=== PATIENT | male | born 1955 | race African-American/Black ===

== ENCOUNTER 2019-08-12 04:26 | Emergency (ER) | payer BC, OTHER ==
[2019-08-12 04:50] VITALS: BP 175/91
--- NOTE | 2019-08-12 08:17 | ER Document Report ---
ED General - General Chief Complaint: Ear Pain Stated Complaint: RIGHT EAR PLUGGED Time Seen by Provider: 08/12/19 07:48 TRAVEL OUTSIDE OF THE [place] IN LAST 30 DAYS: No - HPI Notes: Mr. Pitt is a 64-year-old male with a chief complaint of sensation of right ear being plugged. Onset this morning. Duration persistent. Quality pressure. Location right ear. Radiation none. Relieving factors: Worse after he tried to remove the wax with a Q-tip. Severity moderate. Pertinent prior history: Long-term treatment for hypertension and hyperlipidemia. - Related Data Allergies/Adverse Reactions: No Known Allergies Allergy (Unverified 08/12/19 04:52) Home Medications: HTN MEDS. CHOLESTEROL Past Medical History - General Information source: Patient - Social History Smoking Status: Never Smoker Family History: Reviewed & Not Pertinent Patient has suicidal ideation: No Patient has homicidal ideation: No - Past Medical History Cardiac Medical History: Reports: Hx Hypercholesterolemia, Hx Hypertension Psychiatric Medical History: Reports: Hx Depression Review of Systems - Review of Systems Notes: Constitutional: Negative for fever. HENT: Negative for sore throat. Eyes: Negative for visual changes. Cardiovascular: Negative for chest pain. Respiratory: Negative for shortness of breath. Gastrointestinal: Negative for abdominal pain, vomiting or diarrhea. Genitourinary: Negative for dysuria. Musculoskeletal: Negative for back pain. Skin: Negative for rash. Neurological: Negative for headaches, weakness or numbness. 10 point ROS negative except as marked above and in HPI. Physical Exam - Vital signs Vitals: Temp Pulse Resp BP Pulse Ox 97.7 F 74 20 175/91 H 96 08/12/19 04:39 08/12/19 04:39 08/12/19 04:39 08/12/19 04:39 08/12/19 04:39 - Notes Notes: GENERAL: Somewhat obese male approximately stated age appearing in no acute distress. SKIN: Good turgor no rashes. HEAD: Normocephalic atraumatic. EYES: PERRLA. EOMI. Conjunctivae and sclerae clear. EARS: BOTH CANALS ARE OCCLUDED WITH WAX INITIALLY. FOLLOWING DISIMPACTION CANALS AND TMS ARE CLEAR. NECK: Supple. No masses or thyromegaly. No adenopathy. Carotids 2+ without bruits. No JVD. BACK: Symmetrical without tenderness. CHEST: Respirations unlabored. Breath sounds clear and symmetrical. HEART: Regular rhythm. No murmur gallop or rub. ABDOMEN: Soft nontender without masses, organomegaly or rebound. Bowel sounds normally active. No bruits. EXTREMITIES: No edema. No calf tenderness. Cap refill less than 1.5 seconds. Dorsalis pedis and posterior tibial pulses 3+ and symmetrical. NEUROLOGICAL: Alert and oriented x3. Nonfocal. PSYCHIATRIC: Appropriate affect. Course - Re-evaluation Re-evalutation: 08/12/19 08:16 Bilateral ear lavage by nursing staff. - Vital Signs Vital signs: Temp Pulse Resp BP Pulse Ox 97.7 F 74 20 175/91 H 96 08/12/19 04:39 08/12/19 04:39 08/12/19 04:39 08/12/19 04:39 08/12/19 04:39 Discharge - Discharge Clinical Impression: Bilateral impacted cerumen Condition: Stable Disposition: HOME, SELF-CARE Additional Instructions: Cerumen Impaction The physician found a severe buildup of earwax in your ear canal, called a cerumen impaction. A large plug of wax can cause earache, decreased hearing, or itching. It can even lead to infection of the outer ear. An impaction of earwax can be removed by the physician using special instruments, or can be irrigated out using a stream of water (often a little of both is required). Some less severe impactions are removed using ear drops that dissolve wax. In the future, don't get soap in your ear canal. Soap doesn't remove wax -- it simply hardens it in place. Don't use cotton swabs. These just push the wax into large clumps, where it doesn't flow out normally. Dust and smoke also contribute to wax buildup. Earwax softening drops are available without prescription, and can be used periodically. Contact the doctor if you develop decreased hearing, earache, drainage from the ear, or severe headache. Return here as needed for new or worsening symptoms: Pain that is worsening or unimproved Uncontrolled vomiting High fever or shaking chills Overall worsening
== END 2019-08-12 09:17 | disposition home or self-care (01) ==
LOC: ER 04:26
DX: H61.23 Impacted cerumen, bilateral (principal); H92.01 Otalgia, right ear; E66.9 Obesity, unspecified; E78.00 Pure hypercholesterolemia, unspecified; I10 Essential (primary) hypertension
CPT/HCPCS: 99282

== ENCOUNTER → 2020-08-20 | Outpatient (CLI) | payer OTHER ==
[~2020-08-20] MED LIST: COVID-19 VACCINE (PFIZER)/PF 30 MCG/0.3 ML VIAL IM ONE; EPINEPHRINE INJ/PF 1 MG/1 ML AMPULE IM PRN
--- OUTSIDE RECORDS SUMMARY | 2020-08-23 10:26 | XMS REPORT ---
:1955 [facility] [address] [place] [address] Care Team Providers Name Role Phone Lukasz Mitchell Primary Care Physician Unavailable Nba Boss MD Attending Clinician Unavailable Chaya DUMONT Attending Clinician Unavailable Asiya Attending Clinician Unavailable Chaya Attending Clinician Unavailable Allergies, Adverse Reactions, Alerts This patient has no known allergies or adverse reactions. Medications Ordered Filled Start Stop Current Ordering Indication Dosage Frequency Signature Comments Components Medication Medication Date Date Medication? Clinician (SIG) Name Name hydroCHLORO 2019-07 Yes Nba Perez thiazide 2- Dharmesh Othiazide 12.5 MG 13:53: Gera DUMONT 12.5 MG Oral 18 Oral Capsule Capsule TAKE ONE CAPSULE BY MOUTH EVERY DAY Quantity: 30 Refills: 5 Nba Boss MD Start : 0Active Citalopram 2019-07 Yes Nba Citalopram Hydrobromid 2- Dharmesh Hydrobromi e 20 MG 13:53: Gera DUMONT de 20 MG Oral Tablet 01 Oral Tablet TAKE ONE TABLET BY MOUTH DAILY AT BEDTIME Quantity: 30 Refills: 5 Nba Boss MD Start : 0Active Meloxicam 2019-07 Yes Cedar QD Meloxicam 7.5 MG Oral -09 Montiel 7.5 MG Tablet 00:00: N.P. Oral 00 Tablet TAKE 1 TABLET DAILY WITH FOOD. Quantity: 14 Refills: 0 Montiel N.P.Belem Start : 06-Jun-2020 Active Valsartan-h 2019- Yes Nba Valsartan- ydroCHLOROt 0- Dharmesh hydroCHLOR hiazide 12:04: Gera DUMONT Othiazide 320-25 MG 27 320-25 MG Oral Tablet Oral Tablet TAKE ONE TABLET BY MOUTH ONCE DAILY Quantity: 30 Refills: 6 Nba Boss MD Start : 0Active Simvastatin 2020-1 Yes Nba Simvastati 80 MG Oral 0-19 Dharmesh n 80 MG Tablet 12:04: Gera DUMONT Oral 22 Tablet TAKE ONE TABLET BY MOUTH EVERY NIGHT AT BEDTIME Quantity: 30 Refills: 5 Nba Boss MD Start : 0Active Doxazosin 2020-0 Yes Nba Doxazosin Mesylate 4 8-14 Dharmesh Mesylate 4 MG Oral 09:18: Gera DUMONT MG Oral Tablet 26 Tablet TAKE ONE TABLET BY MOUTH EVERY DAY Quantity: 30 Refills: 5 Nba Boss MD Start : 0Active Tadalafil 2020-0 Yes Nba Tadalafil 20 MG Oral 7-28 Dharmesh 20 MG Oral Tablet 00:00: Gera DUMONT Tablet 00 TAKE ONE TABLET BY MOUTH DAILY Quantity: 30 Refills: 6 Nba Boss MD Start : 0Active Citalopram 2020-0 No Nba Citalopram Hydrobromid 7-13 Dharmesh Hydrobromi e 20 MG 11:04: Gera DUMONT de 20 MG Oral Tablet 08 Oral Tablet TAKE ONE TABLET BY MOUTH DAILY AT BEDTIME Quantity: 30 Refills: 5 Nba Boss MD Start : 0Active hydroCHLORO 2020-0 No Nba hydroCHLOR thiazide 7-13 Dharmesh Othiazide 12.5 MG 11:03: Gera DUMONT 12.5 MG Oral 53 Oral Capsule Capsule TAKE ONE CAPSULE BY MOUTH EVERY DAY Quantity: 30 Refills: 5 Nba Boss MD Start : 0Active Potassium 2020-0 Yes Nba Potassium Chloride 6-16 Dharmesh Chloride My ER 20 09:48: Gera DUMONT My ER 20 MEQ Oral 44 MEQ Oral Tablet Tablet Extended Extended Release Release TAKE ONE TABLET BY MOUTH EVERY DAY Quantity: 90 Refills: 3 Nba Boss MD Start : 0Active Simvastatin 2020-0 No Nba Simvastati 80 MG Oral 4-08 Dharmesh n 80 MG Tablet 09:09: Gera DUMONT Oral 38 Tablet TAKE ONE TABLET BY MOUTH AT BEDTIME Quantity: 30 Refills: 5 Nba Boss MD Start : 04-Nov-2019 Active Valsartan-h 2020-0 No Nba Valsartan- ydroCHLOROt 3-10 Dharmesh hydroCHLOR hiazide 16:50: Gera DUMONT Othiazide 320-25 MG 37 320-25 MG Oral Tablet Oral Tablet TAKE ONE TABLET BY MOUTH ONCE DAILY *replaces losartan* Quantity: 30 Refills: 6 Nba Boss MD Start : 0Active Doxazosin No Nba Doxazosin Mesylate 4 2-07 Dharmesh Mesylate 4 MG Oral 10:12: Gera DUMONT MG Oral Tablet 53 Tablet TAKE ONE TABLET BY MOUTH EVERY DAY Quantity: 30 Refills: 5 Nba Boss MD Start : 04-Sep-2019 Active Rhinocort 2019- Yes Nba QD Rhinocort Allergy 32 1- Dahrmesh Allergy 32 MCG/ACT 00:00: Gera DUMONT MCG/ACT Nasal 00 Nasal Suspension Suspension USE 2 SPRAYS IN EACH NOSTRIL ONCE DAILY Quantity: 1 Refills: 5 Nba Boss MD Start : 0Active 8.43 ML Bottle Testosteron No Nba Testostero e Cypionate 03-28 Dharmesh ne 200 MG/ML 00:00: Gera DUMONT Cypionate Intramuscul 00 200 MG/ML ar Solution Intramuscu lar Solution Inject 300 MG IM Once Monthly, Refills: 0 Nba Boss MD Start : 9Admin Requested Meloxicam Yes Soraya QD Meloxicam 7.5 MG Oral 3-12 Cidra 7.5 MG Tablet 00:00: VILMA Oral 00 Tablet TAKE 1 TABLET DAILY WITH FOOD. Quantity: 30 Refills: 0 Soraya Padron Start : 8Active LORazepam 1 Yes Nba QD LORazepam MG Oral Dharmesh 1 MG Oral Tablet Gera DUMONT Tablet TAKE 1 TABLET DAILY DIRECTED. Quantity: 30 Refills: 2 Nba Boss MD Active Problems Condition Condition Condition Status Onset Resolution Last Treatin g Comments Name Details Category Date Date Treatment Clinician Date Organic Organic Problem Active impotence impotence Injury of Injury of Problem Active left thumb left thumb Organic Organic Problem Inactiv impotence impotence e Pes planus Pes planus Problem Active of both of both feet feet Closed Closed Problem Active displaced displaced fracture of fracture of third third metatarsal metatarsal bone of bone of right foot right foot with with nonunion nonunion Plantar Plantar Problem Active fasciitis fasciitis of right of right foot foot Closed Closed Problem Active displaced displaced fracture of fracture of second second metatarsal metatarsal bone of bone of right foot right foot with with delayed delayed healing healing Foot pain, Foot pain, Problem Active right right Encounter Encounter Problem Active for for screening screening for for malignant malignant neoplasm of neoplasm of prostate prostate Arthralgia Arthralgia Problem Active of shoulder of shoulder Sciatica Sciatica Problem Active Arthralgia Arthralgia Problem Active of multiple of multiple sites sites Cerumen Cerumen Problem Active impaction impaction Fatigue Fatigue Problem Active Hyperlipemi Hyperlipemi Problem Active a a Benign Benign Problem Active hypertensiv hypertensiv e heart e heart disease disease Hypogonadis Hypogonadis Problem Active m male m male Procedures Procedure Date / Time Performed Performing Clinician Devic e Basic Metabolic Panel(BMP) 2020-02-23 00:00:00 Hepatic Panel 2020-02-23 00:00:00 Lipid Panel 2020-02-23 00:00:00 Testosterone 2020-02-23 00:00:00 CBC 2020-02-23 00:00:00 SHOULDER ARTHROSCOPY/SURGERY 2018-04-08 10:25:00 Preop H\T\P 2018-04-03 13:30:00 OFFICE/OUTPATIENT VISIT, EST 2018-02-14 15:05:00 Procedures not documented Results Test Description Test Time Test Comments Text Results Atomic Results Result Comments XR-Hand(3 Views) 2020-06-06 08:59:00 An image is avaliable in [employer], click link to view image CBC 2020-02-23 16:26:00 Test Item Value Reference Range Comments White Blood Cell (test code = White Blood Cell) 5.3 K/uL 3.5-11.1 Red Blood Cell (test code = Red Blood Cell) 5.16 {M/uL} 4.27 -5.49 Hemoglobin (test code = Hemoglobin) 14.2 g/dL 12.9-16.1 Hematocrit (test code = Hematocrit) 44 % 38-47 Mean Corpuscular Volume (test code = Mean Corpuscular Volume) 85 .7 fL 79.0-95.0 Mean Corpuscular Hemoglobin (test code = Mean Corpuscular 27.5 p g/mL 27.0-33.0 Hemoglobin) Mean Corpuscular Hemoglobin Concentration (test code = Mean 32.1 g/dL 33.5-35.5 Corpuscular Hemoglobin Concentration) Red Cell Distribution Width (test code = Red Cell 16.3 % 12.0-15.0 Distribution Width) Platelet (test code = Platelet) 237 K/uL 130-353 Mean Platelet Volume (test code = Mean Platelet Volume) 9.9 fL 7.5-10.7 Neutrophil Count, absolute (test code = Neutrophil Count, 2.7 K/ uL 1.9-7.2 absolute) Neutrophil Count Percentage (test code = Neutrophil Count 50.5 % 43.0-72.0 Percentage) Lymphocyte Count, absolute (test code = Lymphocyte Count, 1.9 K/ uL 1.1-2.7 absolute) Lymphocyte Count Percentage (test code = Lymphocyte Count 35.3 % 17.0-44.0 Percentage) Monocyte Count, absolute (test code = Monocyte Count, 0.7 K/uL 0.3-0.8 absolute) Monocyte Count Percentage (test code = Monocyte Count 12.7 % 4.5-12.4 Percentage) Eosinophil Count, absolute (test code = Eosinophil Count, 0.1 K/ uL 0.0-0.5 absolute) Eosinophil Count Percentage (test code = Eosinophil Count 0.9 % 0.7-7.8 Percentage) Basophil Count, absolute (test code = Basophil Count, 0.0 K/uL 0.0-0.1 absolute) Basophil Count Percentage (test code = Basophil Count 0.4 % 0.2-1.1 Percentage) Nucleated Red Blood Cell, absolute (test code = Nucleated Re d 0.00 K/uL 0.00-0.00 Blood Cell, absolute) Nucleated Red Blood Cell, percentage (test code = Nucleated 0.00 % 0.00-0.00 Red Blood Cell, percentage) Basic Metabolic Panel(BMP)2020-02-23 16:26:00 Test Item Value Reference Range Comments Glucose (test code = Glucose) 91 mg/dL 74-106 Sodium (test code = Sodium) 139 mmol/L 135-145 Potassium (test code = Potassium) 4.4 mmol/L 3.5-5.3 Chloride (test code = Chloride) 100 mmol/L 98-107 CO2 (test code = CO2) 35 mmol/L 22-30 Creatinine, serum (test code = Creatinine, serum) 1.20 mg/dL 0.10-1.25 Glomerular Filtration Rate (test code = >60 >60 Glomerular Filtration Rate) Glomerular Filtration Rate AA (test code = >60 >60 Glomerular Filtration Rate AA) Blood Urea Nitrogen (test code = Blood Urea 15 mg/dL 9-20 Nitrogen) Calcium (test code = Calcium) 9.3 mg/dL 8.4-10.5 Hepatic [id number] 16:26:00 Test Item Value Reference Range Comments Total Protein (test code = Total Protein) 7.4 g/dL 6.3-8. 2 Albumin (test code = 47256-9) 4.1 g/dL 3.5-5.0 Total Bilirubin (test code = Total Bilirubin) 0.3 mg/dL 0. 2-1.3 Bilirubin, Direct (test code = Bilirubin, Direct) 0.1 mg/dL 0.0-0.4 Bilirubin, unconj (test code = Bilirubin, unconj) 0.2 mg/dL 0.0-1.1 Alkaline Phosphatase (test code = Alkaline 95 U/L 20-15 0 Phosphatase) Alanine Transaminase (test code = Alanine 30 U/L 0-50 Transaminase) Aspartate Aminotransferase (test code = Aspartate 35 U/L 3-36 Aminotransferase) Lipid [id number] 16:26:00 Test Item Value Reference Range Comments Chol/HDL Ratio (test code = 2089-1) 3.1 {ratio} 0.0-6.0 High Density Lipoprotein Cholesterol (test code 51 mg/dL 40-110 = High Density Lipoprotein Cholesterol) Low Density Lipoprotein, calculated (test code = 81 mg/dL 1-130 Low Density Lipoprotein, calculated) [id number] 16:26:00 Test Item Value Reference Range Comments Testosterone (test code = Testosterone) 346.00 ng/dL 71.80-62 3.00 Assessments Condition Name Status Diagnosis Date Treating Clinici an Injury of left thumb Active Encounter for preventive health examination Active Benign hypertensive heart disease Active Hypogonadism male Active Benign hypertensive heart disease Active Encounter for preventive health examination Active Fatigue Active Hypogonadism male Active Hyperlipemia Active Cerumen impaction Active Benign hypertensive heart disease Active Hypogonadism male Active Hypogonadism male Active Hyperlipemia Active Hypogonadism male Active Benign hypertensive heart disease Active Calcific tendinitis of right shoulder Active Primary osteoarthritis, right shoulder Active Unsp rotatr-cuff tear/ruptr of right Active shoulder, not trauma Chondromalacia, right shoulder Active Primary osteoarthritis, right shoulder Active Calcific tendinitis of right shoulder Active Loose body in right shoulder Active Pain in right shoulder Active Pain in right shoulder Active Primary osteoarthritis, right shoulder Active Calcific tendinitis of right shoulder Active Loose body in right shoulder Active Encounters Start End Encounter Admission Attending Care Care Encounter Date/Time Date/Time Type Type Clinicians Facility Department ID 2020-08-16 2020-08-16 Appointment [facility] [id number] 15:00:00 15:30:27 ; RAI shore, Clinical WB 2020-07-15 2020-07-15 Appointment [facility] [id number] 13:25:00 13:25:00 ; RAI shore, Clinical WB 2020-07-15 2020-07-15 Appointment [facility] [id number] 13:15:00 13:15:00 ; RAI shore, Clinical WB 2020-06-17 2020-06-17 Appointment [facility] [id number] 14:25:00 14:25:00 ; RAI shore, Clinical WB 2020-06-06 2020-06-06 Appointment [facility] [id number] 08:45:00 08:45:00 ; Ayanna Oliva 2020-06-06 2020-06-06 Appointment [facility] [id number] 08:30:00 08:30:00 ; Belem Montiel NP 2020-05-10 2020-05-10 Appointment [facility] [id number] 16:30:00 16:30:00 ; RAI shore, Clinical WB 2020-04-07 2020-04-07 Appointment [facility] [id number] 16:30:00 16:30:00 ; RAI Nanovalentino mone, Clinical WB 2020-03-04 2020-03-04 Appointment [facility] [id number] 16:35:00 16:35:00 ; RAI Nanovalentino shore, Clinical WB 2020-02-23 2020-02-23 Appointment Nba Boss [facility] [id number] 16:00:00 16:00:00 ; Dharmesh Boss MD 2020-02-03 2020-02-03 Appointment [facility] [id number] 16:35:00 16:35:00 ; RAI Enriquezninavalentino shore, Clinical WB 2019-12-30 2019-12-30 Appointment [facility] [id number] 16:30:00 16:30:00 ; RAI shore, Clinical WB 2019-11-26 2019-11-26 Appointment [facility] [id number] 14:35:00 14:35:00 ; RAI shore, Clinical WB 2019-10-15 2019-10-15 Appointment [facility] [id number] 16:20:00 16:20:00 ; RAI Castelan e, Clinical WB 2019-09-15 2019-09-15 Appointment [facility] [id number] 16:25:00 16:25:00 ; RAI shore, Clinical WB 2019-08-25 2019-08-25 Appointment Nba Boss [facility] [id number] 15:30:00 15:30:00 ; Dharmesh Boss MD 2019-08-12 2019-08-12 Appointment [facility] [id number] 14:50:00 14:50:00 ; RAI shore, Clinical WB 2019-07-10 2019-07-10 Appointment [facility] [id number] 15:30:00 15:30:00 ; RAI shore, Clinical WB 2019-06-12 2019-06-12 Appointment [facility] [id number] 15:30:00 15:30:00 ; RAI shore, Clinical WB 2019-05-08 2019-05-08 Appointment [facility] [id number] 16:25:00 16:25:00 ; RAI shore, Clinical WB 2019-04-10 2019-04-10 Appointment [facility] [id number] 16:20:00 16:20:00 ; RAI shore, Clinical WB 2019-03-06 2019-03-06 Appointment [facility] [id number] 16:25:00 16:25:00 ; RAI shore, Clinical WB 2019-02-19 2019-02-19 Appointment Nba Boss [facility] [id number] 15:30:00 15:30:00 ; Dharmesh Boss MD 2019-02-04 2019-02-04 Appointment [facility] [id number] 16:25:00 16:25:00 ; RAI shore, Clinical WB 2019-01-02 2019-01-02 Appointment [facility] [id number] 16:20:00 16:20:00 ; RAI shore, Clinical WB 2018-12-02 2018-12-02 Appointment [facility] [id number] 16:20:00 16:20:00 ; RAI shore, Clinical WB 2018-10-28 2018-10-28 Appointment [facility] [id number] 16:25:00 16:25:00 ; RAI shore, Clinical WB 2018-09-25 2018-09-25 Appointment [facility] [id number] 16:35:00 16:35:00 ; RAI shore, Clinical WB 2018-08-22 2018-08-22 Appointment Nba Boss [facility] 20 [id number] 14:30:00 14:30:00 ; Dharmesh Boss MD 2018-07-07 2018-07-07 Appointment [facility] [id number] 16:00:00 16:00:00 ; RAI shore, Clinical WB 2018-06-03 2018-06-03 Appointment [facility] [id number] 14:50:00 14:50:00 ; RAI shore, Clinical WB 2018-05-30 2018-05-30 Appointment [facility] [id number] 14:00:00 14:00:00 ; RAI shore, Clinical WB 2018-05-02 2018-05-02 Appointment [facility] [id number] 14:30:00 14:30:00 ; RAI shore, Clinical WB 2018-04-08 2018-04-08 [facility] [id number] 10:25:00 10:25:00 Chao DUMONT Orthopedics [id number] \T\ Sports [id number] [facility] [id number] 2018-04-04 2018-04-04 Appointment [facility] [id number] 15:05:00 15:05:00 ; RAI Annelise shore, Clinical WB 2018-04-03 2018-04-03 [id number] 13:30:00 13:30:00 [facility] [id number] \T\ Sports [id number] Medicine NB [id number] 2018-03-03 2018-03-03 Appointment [facility] [id number] 16:00:00 16:00:00 ; RAI Annelise shore, Clinical WB 2018-02-14 2018-02-14 Outpatient Chaya [facility] [id number] 15:05:00 15:05:00 [facility] [id number] \T\ Sports [id number] Medicine NB [id number] Immunizations Ordered Filled Immunization Date Status Comments Refus al Reason Immunization Name Name Fluvirin INJ 2015-05-17 Completed 00:00:00 Influenza 2015-05-17 Completed 00:00:00 Influenza 2011-05-18 Completed 00:00:00 Influenza Unknown Completed Social History Smoking Status Start Date Stop Date Never smoked tobacco (finding) Vital Signs Vital Name Observation Time Observation Value Comments Systolic blood pressure 2020-06-06 08:38:00 140 mm[Hg] Diastolic blood pressure 2020-06-06 08:38:00 88 mm[Hg] Body height 2020-06-06 08:38:00 67 [in_us] Weight 2020-06-06 08:38:00 260 [lb_av] Body mass index (BMI) [Ratio] 2020-06-06 08:38:00 40.72 kg/m2 Body temperature 2020-06-06 08:38:00 97.1 [degF] Heart Rate 2020-06-06 08:38:00 84 /min O2 SAT 2020-06-06 08:38:00 96 % Systolic blood pressure 2020-02-23 16:03:00 142 mm[Hg] Diastolic blood pressure 2020-02-23 16:03:00 86 mm[Hg] Weight 2020-02-23 16:03:00 258 [lb_av] Body mass index (BMI) [Ratio] 2020-02-23 16:03:00 40.41 kg/m2 Body temperature 2020-02-23 16:03:00 97.1 [degF] Heart Rate 2020-02-23 16:03:00 84 /min Hospital Discharge Instructions NameDatesDetailsInstructions not documentedNameDatesDetailsInstructions not documentedNameDatesDetailsInstructions not documented NameDatesDetailsInstructions not documentedNameDatesDetailsInstructions not documentedNameDatesDetailsInstructions not documented NameDatesDetailsInstructions not documentedNameDatesDetailsInstructions not documentedNameDatesDetailsInstructions not documented
== END ==
LOC: EMPHEALTH 13:48
PROVIDERS: ATTEND Internal Medicine
DX: Z23 Encounter for immunization (principal)
CPT/HCPCS: 91300